=== PATIENT | female | born 1955 | race Caucasian/White ===

== ENCOUNTER → 2018-11-30 11:43 | Outpatient (CLI) | payer OTHER, SELFPAY ==
--- NOTE | 2018-11-30 | DI.CT.S_ITS ---
PROCEDURE: CT CHEST WO CON INDICATIONS: PULMONARY NODULE TECHNIQUE: Noncontrast 5 mm thick sections acquired from the pulmonary apices to the posterior costophrenic angles. 7 mm thick coronal and sagittal MIP reformats were then acquired. For radiation dose reduction, the following was used: automated exposure control, adjustment of mA and/or kV according to patient size. COMPARISON: None. Reportedly a CT from [facility] will become available for review. An addendum can be generated at that point in time. FINDINGS: Image quality: Excellent. Lungs and pleura: No definite acute air space opacities but there is a band of faint opacification, alveolar, tracking through the medial and lateral segments of the right middle lobe and also a more subtle band of lingular segment left upper lobe alveolar radiodensity adjacent to the left heart. Within the left upper lobe a rounded radiodensity measures 6 mm in diameter (series 2 image 22) and within the anterior border of the right lower lobe a sub-solid 4 mm radiodensity can be seen (series 3 image 35).. No pleural effusions or pneumothorax. Central and peripheral airways are patent and normal in caliber. Mediastinum: Heart size is normal. No pericardial effusion. No mediastinal adenopathy by size criteria. Thoracic aorta and central pulmonary arteries are normal in size. Esophagus is normal in caliber. No hiatal hernia. Bones and chest wall: No suspicious bony lesions. No vertebral body compression fractures. No axillary or supraclavicular adenopathy by size criteria. Thyroid gland is not well-visualized by this noncontrast technique.. Abdomen: Visualized upper abdominal solid organs and bowel loops appear normal in the absence of contrast. IMPRESSION: Right middle lobe and lingular segment left upper lobe vague areas of alveolar air space disease would represent alveolar scarring or acute pneumonitis mild in overall severity. The reportedly available but not yet received outside comparison CT will be very helpful in determining chronicity opposed to abnormalities. There is a sub-solid 4 mm nodule anterior aspect of the right lower lobe, and a solid appearing 6 mm nodule within the left upper lobe. Again, each of these should be reviewed with benefit of the outside comparison CT scanning. An addendum report can then be generated with advice for followup. Dictated by: Aly Cota M.D. on 11/30/2018 at 15:43 Approved by: Aly Cota M.D. on 11/30/2018 at 15:47
== END ==
PROVIDERS: Visit Provider Internal Medicine
DX: R91.8 Other nonspecific abnormal finding of lung field (principal)
CPT/HCPCS: 71250

== ENCOUNTER 2019-02-06 12:23 | Emergency (ER) | payer OTHER, SELFPAY ==
[2019-02-06] VITALS (8 sets, daily range): BP systolic 110–157; BP diastolic 62–106; PULSE 64–108; RESP 12–18; TEMP 36.9; O2SAT 97–100; BMI 34.2
--- NOTE | 2019-02-06 12:39 | ED.CHESTPAIN ---
HPI - Chest Pain General Chief Complaint: Chest Pain Stated Complaint: Palpitations Time Seen by Provider: 02/06/19 12:30 Source: patient Mode of arrival: ambulatory Limitations: no limitations History of Present Illness HPI narrative: Patient is a 64-year-old female who presents with heart palpitations. She has been feeling them off and on for the last weeks. She has been seen by our [facility] diagnosis new atrial flutter. She was instructed to increase her aspirin to 325 mg once daily and stop taking atenolol and start taking metoprolol which she has not yet done. She says this all started when she was having upper respiratory like symptoms and cough. She actually just finished a Z-Panda. She says the cough is overall better. She does feels like her heart is slow popping worried she might have a stroke. Denies any stroke-like symptoms. overall very anxious. MD complaint: chest pain Related Data Home Medications Medication Instructions Recorded Confirmed aspirin 325 mg PO BEDTIME 02/06/19 02/06/19 metoprolol succinate 50 mg PO DAILY 02/06/19 02/06/19 Allergies Allergy/AdvReac Type Severity Reaction Status Date / Time levofloxacin Allergy Verified 02/06/19 12:31 Penicillins Allergy Verified 02/06/19 12:31 walnut Allergy Verified 02/06/19 12:31 Review of Systems Review of Systems GENERAL: Denies chills, fatigue, malaise, fever, sweats, travel HEENT: Denies sinus pain, ear pain, sore throat, difficulty swallowing, neck pain RESPIRATORY: Denies dyspnea, cough, wheezing, hemoptysis, sputum. CARDIOVASCULAR: See HPI GASTROINTESTINAL: Denies nausea, vomiting, abdominal pain, diarrhea, constipation, melena. : Denies dysuria, frequency, incontinence, hematuria, urinary retention, flank pain. MUSCULOSKELETAL: Denies weakness, joint pain, or bony pain SKIN: No rash, no erythema, no pruritus NEUROLOGIC: Denies weakness, dizziness, headache, numbness, change in speech, confusion PSYCHIATRIC: No concerning psychosocial issues. 12 point review of systems is negative except for those stated above and HPI [facility] Medical History Atrial fibrillation (Acute) Social History Smoking Status: Never smoker Social History Smoking Status: Never smoker Exam Initial Vital Signs Initial Vital Signs: Vital Signs Temperature 98.5 F 02/06/19 12:31 Pulse Rate 108 H 02/06/19 12:31 Respiratory Rate 16 02/06/19 12:31 Blood Pressure 157/106 H 02/06/19 12:31 Pulse Oximetry 99 02/06/19 12:31 GENERAL: Very anxious female no acute distress and in no acute distress. HEENT: Head atraumatic,EOMI, pupils reactive, face symmetric, moist mucous membranes CARDIOVASCULAR: Irregularly irregular RESPIRATORY: Breath sounds equal bilaterally, no wheezes rales or rhonchi. ABDOMEN: Soft, nontender. Normoactive bowel sounds all 4 quadrants. No guarding or rebound. EXTREMITIES: Normal range of motion, no clubbing or edema. Neurovascularly intact NEUROLOGICAL: Alert and oriented x4.Normal gait and speech. Cranial nerves II through XII grossly intact. SKIN: Warm, dry, no laceration, no petechiae, no rashes or lesions. Course Orders Ordered: ED Orders 02/06/19 12:40 Complete Blood Count AUTO DIFF Stat Comprehensive Metabolic Panel Stat Lipase Stat Magnesium Stat Partial Thromboplastin Time Stat Prothrombin Time INR Stat Thyroid Stimulating Hormone Stat Troponin & CK Cardiac Panel Stat 02/06/19 12:46 XR chest 1V Stat EKG-12 Lead Stat 02/06/19 12:50 Prothrombin Time INR Stat 02/06/19 12:51 Complete Blood Count AUTO DIFF Stat 02/06/19 13:55 Urine Culture Stat Urine Microscopic Stat Discontinued Medications Sodium Chloride (Normal Saline 0.9%) 1,000 mls @ 1,000 mls/hr IV CONT LALIT Last Infusion: 02/06/19 14:11 Dose: 0 mls/hr Admin: 02/06/19 12:57 Dose: 1,000 mls/hr Metoprolol Tartrate (Lopressor) 5 mg IV NOW ONE Stop: 02/06/19 12:51 Last Admin: 02/06/19 12:56 Dose: 5 mg Metoprolol Tartrate (Lopressor) 50 mg PO NOW ONE Stop: 02/06/19 14:21 Last Admin: 02/06/19 14:37 Dose: 50 mg Vital Signs - 8 hr 02/06/19 12:31 02/06/19 12:54 02/06/19 12:59 Temperature 98.5 F Pulse Rate 108 H 97 H 100 H Respiratory Rate 16 16 18 Blood Pressure 157/106 H Blood Pressure [Left Arm] 155/97 H 143/95 H Pulse Oximetry 99 98 98 02/06/19 13:00 02/06/19 13:10 02/06/19 13:30 Temperature Pulse Rate 64 85 91 H Respiratory Rate 14 16 14 Blood Pressure Blood Pressure [Left Arm] 132/62 138/64 138/74 Pulse Oximetry 100 100 02/06/19 14:01 02/06/19 14:30 Temperature Pulse Rate 93 H 87 Respiratory Rate 12 14 Blood Pressure Blood Pressure [Left Arm] 110/68 116/77 Pulse Oximetry 97 99 MDM - Chest Pain Lab Data Attestation: I reviewed the patient's lab results. Result diagrams: 02/06/19 12:40 02/06/19 12:40 Lab Results 02/06/19 02/06/19 02/06/19 Range/Units 12:40 12:40 12:40 WBC 8.3 (4.5-11.0) X10^3/uL RBC 5.18 (4.0-5.2) X10^6/uL Hgb 15.6 (12.0-16.0) g/dL Hct 46.3 H (36-46) % MCV 89.5 (80-100) fL MCH 30.1 (26-34) PG MCHC 33.6 (30-36) % RDW 13.4 (11.6-14.8) % Plt Count 285 (150-400) X10^3/uL Neut % (Auto) 50.0 (50-75) % Lymph % (Auto) 41.7 H (25-40) % Hendricks % (Auto) 6.6 (3-14) % Eos % (Auto) 0.8 L (2-4) % Baso % (Auto) 0.9 (0-2) % Neut # (Auto) 4200 (1433-7021) /uL Lymph # (Auto) 3500 (1898-3898) /uL Hendricks # (Auto) 500 (0-900) /uL Eos # (Auto) 100 (0-450) /uL Baso # (Auto) 100 (0-100) /uL PT 11.5 (10.1-12.7) SECONDS INR 1.0 (0.9-1.3) APTT 33 (26.4-36.2) SECONDS Sodium 141 (137-145) mmol/L Potassium 4.1 (3.4-5.1) mmol/L Chloride 105 (98-107) mmol/L Carbon Dioxide 25 (22-32) mmol/L BUN 14 (7-17) mg/dL Creatinine 0.90 (0.52-1.04) mg/dL Estimated GFR > 60.0 (>60) mL/min BUN/Creatinine Ratio 15.6 (6-22) Glucose 100 (80-110) mg/dL Calcium 9.4 (8.4-10.2) mg/dL Magnesium (1.6-2.3) mg/dL Total Bilirubin 1.0 (0.2-1.3) mg/dL AST 22 (14-36) IU/L ALT 18 (9-52) IU/L Alkaline Phosphatase 79 (38-126) U/L Total Creatine Kinase 45 (30-135) U/L CK-MB (CK-2) TNP CK-MB (CK-2) Rel Index TNP Troponin I < 0.012 (0.01-0.034) ng/mL Total Protein 8.2 (6.3-8.2) g/dL Albumin 4.4 (3.5-5.0) g/dL Globulin 3.8 (1.7-4.1) g/dL Albumin/Globulin Ratio 1.2 (1.0-2.8) Lipase 56 (23-300) U/L TSH (0.47-4.68) uIU/mL Urine RBC (0-5/HPF) Urine WBC (0-5/HPF) Urine Bacteria (None) Ur Culture Indicated? 02/06/19 02/06/19 02/06/19 Range/Units 12:40 12:40 13:55 WBC (4.5-11.0) X10^3/uL RBC (4.0-5.2) X10^6/uL Hgb (12.0-16.0) g/dL Hct (36-46) % MCV (80-100) fL MCH (26-34) PG MCHC (30-36) % RDW (11.6-14.8) % Plt Count (150-400) X10^3/uL Neut % (Auto) (50-75) % Lymph % (Auto) (25-40) % Hendricks % (Auto) (3-14) % Eos % (Auto) (2-4) % Baso % (Auto) (0-2) % Neut # (Auto) (2805-0926) /uL Lymph # (Auto) (2769-2642) /uL Hendricks # (Auto) (0-900) /uL Eos # (Auto) (0-450) /uL Baso # (Auto) (0-100) /uL PT (10.1-12.7) SECONDS INR (0.9-1.3) APTT (26.4-36.2) SECONDS Sodium (137-145) mmol/L Potassium (3.4-5.1) mmol/L Chloride (98-107) mmol/L Carbon Dioxide (22-32) mmol/L BUN (7-17) mg/dL Creatinine (0.52-1.04) mg/dL Estimated GFR (>60) mL/min BUN/Creatinine Ratio (6-22) Glucose (80-110) mg/dL Calcium (8.4-10.2) mg/dL Magnesium 2.2 (1.6-2.3) mg/dL Total Bilirubin (0.2-1.3) mg/dL AST (14-36) IU/L ALT (9-52) IU/L Alkaline Phosphatase (38-126) U/L Total Creatine Kinase Cancelled (30-135) U/L CK-MB (CK-2) Cancelled CK-MB (CK-2) Rel Index Cancelled Troponin I Cancelled (0.01-0.034) ng/mL Total Protein (6.3-8.2) g/dL Albumin (3.5-5.0) g/dL Globulin (1.7-4.1) g/dL Albumin/Globulin Ratio (1.0-2.8) Lipase (23-300) U/L TSH 3.19 (0.47-4.68) uIU/mL Urine RBC 1-5/hpf (0-5/HPF) Urine WBC 0-1/hpf (0-5/HPF) Urine Bacteria Few (2-10) H (None) Ur Culture Indicated? Specimen cultured Urine Dip Bedside Urine Glucose Negative Bedside Urine Bilirubin - Negative Bedside Urine Ketone - Negative Urine Specific [place] 1.015 Bedside Urine Occult Blood - Negative Bedside Urine pH 6.5 Bedside Urine Protein - Negative Bedside Urine Urobilinogen - Negative Bedside Urine Nitrite - Negative Bedside Urine Leukocytes +/- 15 Esterase Imaging Data Chest x-ray: Radiologist's impression: PROCEDURE: XR CHEST 1V INDICATIONS: chest pain TECHNIQUE: One view of the chest was acquired. COMPARISON: None. FINDINGS: Surgical changes and devices: None. Lungs and pleura: Lungs are clear considering reduced inspiratory volume. No pleural effusions or pneumothorax. Mediastinum: Mediastinal contours appear normal. Heart size is normal. Bones and chest wall: No suspicious bony lesions. Overlying soft tissues appear unremarkable. IMPRESSION: Normal for age and reduced inspiratory volume, source of current chest pain symptoms is not seen. Dictated by: Aly Cota M.D. on 02/06/2019 at 13:21 ECG Data Attestation: I personally reviewed and interpreted this ECG as follows: Prior ECG tracings: not available for review Interpretation: Atrial fibrillation rate [address] changes MDM Narrative Medical decision making narrative: At this time the patient has been having AFib ongoing for at least 2 weeks not a candidate for cardioversion. I recommend that she start taking oral metoprolol as previously recommended and have an outpatient echocardiogram. Continue aspirin. Heart rate is better controlled with metoprolol she is given dose IV and oral dose now. She has metoprolol on she started tomorrow HOLLY?DS?-VASc Score for Atrial Fibrillation Stroke Risk from [email or web address] on 02/06/2019 All calculations should be rechecked by clinician prior to use RESULT SUMMARY: 2 points Stroke risk was 2.2% per year in >90,000 patients (the [place] Atrial Fibrillation Cohort Study) and 2.9% risk of stroke/TIA/systemic embolism. One recommendation suggests a 0 score is ?low? risk and may not require anticoagulation; a 1 score is ?low-moderate? risk and should consider antiplatelet or anticoagulation, and score 2 or greater is ?moderate-high? risk and should otherwise be an anticoagulation candidate. INPUTS: Age ?> 0 = <65 Sex ?> 1 = Female <abbr title='Congestive heart failure'>CHF</abbr> history ?> 0 = No Hypertension history ?> 1 = Yes Stroke / TIA / Thromboembolism history ?> 0 = No Vascular disease history ?> 0 = No Diabetes history ?> 0 = No Discharge Plan Departure Patient Disposition: Home Clinical Impression: Atrial fibrillation Qualifiers: Atrial fibrillation type: unspecified Qualified Code(s): I48.91 - Unspecified atrial fibrillation Discharge Date/Time: 02/06/19 14:47 Interventions: ED Discharge Assessment Last Done: 02/06/19 14:46 Instructions: DI for Atrial Fibrillation Activity Restrictions/Additional Instructions: *You have been diagnosed with atrial fibrillation *What to do: Atrial fibrillation does put you at risk for stroke it is recommended that he continue full-dose aspirin and daily *Continue to take medications as directed Stopped taking atenolol start taking metoprolol 50 mg daily as previously recommended it will help slow her heart rate *Follow up with your primary care provider in 2-3 days *Return to ER if you should have increasing shortness of breath, heart palpitations, dizziness or any new, worsening or concerning symptoms Prescriptions: No Action metoprolol succinate 50 mg tablet extended release 24 hr 50 mg PO DAILY RF: 0 aspirin 325 mg Tablet 325 mg PO BEDTIME RF: 0 Referrals: Asia Lott MD [Primary Care Provider] -
--- NOTE | 2019-02-06 12:46 | DI.RAD.S_ITS ---
PROCEDURE: XR CHEST 1V INDICATIONS: chest pain TECHNIQUE: One view of the chest was acquired. COMPARISON: None. FINDINGS: Surgical changes and devices: None. Lungs and pleura: Lungs are clear considering reduced inspiratory volume. No pleural effusions or pneumothorax. Mediastinum: Mediastinal contours appear normal. Heart size is normal. Bones and chest wall: No suspicious bony lesions. Overlying soft tissues appear unremarkable. IMPRESSION: Normal for age and reduced inspiratory volume, source of current chest pain symptoms is not seen. Dictated by: Aly Cota M.D. on 02/06/2019 at 13:21 Approved by: Aly Cota M.D. on 02/06/2019 at 13:21
[2019-02-06 12:56] LABS: Add Manual Diff / Slide Review NO; Basophils Absolute Auto 100 /uL (0-100); Basophils Percent Auto 0.9 % (0-2); Eosinophils Absolute Auto 100 /uL (0-450); Eosinophils Percent Auto 0.8 % (2-4); Hematocrit 46.3 % (36-46); Hemoglobin 15.6 g/dL (12.0-16.0); Lymphocytes Absolute Auto 3500 /uL (1100-4500); Lymphocytes Percent Auto 41.7 % (25-40); Mean Corpuscular HGB Conc 33.6 % (30-36); Mean Corpuscular Hemoglobin 30.1 PG (26-34); Mean Corpuscular Volume 89.5 fL (80-100); Monocytes Absolute Auto 500 /uL (0-900); Monocytes Percent Auto 6.6 % (3-14); Neutrophils Absolute Auto 4200 /uL (1500-7000); Platelet Count 285 X10^3/uL (150-400); Red Blood Cell Count 5.18 X10^6/uL (4.0-5.2); Red Cell Distribution Width 13.4 % (11.6-14.8); White Blood Cell Count 8.3 X10^3/uL (4.5-11.0)
[2019-02-06] MEDS: METOPROLOL TARTRATE 5 MG/5 ML INJ IV (12:56)
[2019-02-06] MEDS: SODIUM CHLORIDE 0.9% 1,000 ML 1000 ML IV (12:57)
--- NOTE | 2019-02-06 12:57 | ED_ITS ---
HPI - Chest Pain General Chief Complaint: Chest Pain Stated Complaint: Palpitations Time Seen by Provider: 02/06/19 12:30 Source: patient Mode of arrival: ambulatory Limitations: no limitations History of Present Illness HPI narrative: Patient is a 64-year-old female who presents with heart palpitations. She has been feeling them off and on for the last weeks. She has been seen by our [facility] diagnosis new atrial flutter. She was instructed to increase her aspirin to 325 mg once daily and stop taking atenolol and start taking metoprolol which she has not yet done. She says this all started when she was having upper respiratory like symptoms and cough. She actually just finished a Z-Panda. She says the cough is overall better. She does feels like her heart is slow popping worried she might have a stroke. Denies any stroke- like symptoms. overall very anxious. MD complaint: chest pain Related Data Home Medications Medication Instructions Recorded Confirmed aspirin 325 mg PO BEDTIME 02/06/19 02/06/19 metoprolol succinate 50 mg PO DAILY 02/06/19 02/06/19 Allergies Allergy/AdvReac Type Severity Reaction Status Date / Time levofloxacin Allergy Verified 02/06/19 12:31 Penicillins Allergy Verified 02/06/19 12:31 walnut Allergy Verified 02/06/19 12:31 Review of Systems Review of Systems GENERAL: Denies chills, fatigue, malaise, fever, sweats, travel HEENT: Denies sinus pain, ear pain, sore throat, difficulty swallowing, neck pain RESPIRATORY: Denies dyspnea, cough, wheezing, hemoptysis, sputum. CARDIOVASCULAR: See HPI GASTROINTESTINAL: Denies nausea, vomiting, abdominal pain, diarrhea, co nstipation, melena. : Denies dysuria, frequency, incontinence, hematuria, urinary retention, flank pain. MUSCULOSKELETAL: Denies weakness, joint pain, or bony pain SKIN: No rash, no erythema, no pruritus NEUROLOGIC: Denies weakness, dizziness, headache, numbness, change in speech, confusion PSYCHIATRIC: No concerning psychosocial issues. 12 point review of systems is negative except for those stated above and HPI [facility] Medical History Atrial fibrillation (Acute) Social History Smoking Status: Never smoker Social History (Reviewed 02/06/19 @ 12:59 by ISHMAEL Bates Smoking Status: Never smoker Exam Initial Vital Signs Initial Vital Signs: Vital Signs Temperature 98.5 F 02/06/19 12:31 Pulse Rate 108 H 02/06/19 12:31 Respiratory Rate 16 02/06/19 12:31 Blood Pressure 157/106 H 02/06/19 12:31 Pulse Oximetry 99 02/06/19 12:31 GENERAL: Very anxious female no acute distress and in no acute distress. HEENT: Head atraumatic,EOMI, pupils reactive, face symmetric, moist mucous membr anes CARDIOVASCULAR: Irregularly irregular RESPIRATORY: Breath sounds equal bilaterally, no wheezes rales or rhonchi. ABDOMEN: Soft, nontender. Normoactive bowel sounds all 4 quadrants. No guardi ng or rebound. EXTREMITIES: Normal range of motion, no clubbing or edema. Neurovascularly intact NEUROLOGICAL: Alert and oriented x4.Normal gait and speech. Cranial nerves II through XII grossly intact. SKIN: Warm, dry, no laceration, no petechiae, no rashes or lesions. Course Orders Ordered: ED Orders 02/06/19 12:40 Complete Blood Count AUTO DIFF Stat Comprehensive Metabolic Panel Stat Lipase Stat Magnesium Stat Partial Thromboplastin Time Stat Prothrombin Time INR Stat Thyroid Stimulating Hormone Stat Troponin & CK Cardiac Panel Stat 02/06/19 12:46 XR chest 1V Stat EKG-12 Lead Stat 02/06/19 12:50 Prothrombin Time INR Stat 02/06/19 12:51 Complete Blood Count AUTO DIFF Stat 02/06/19 13:55 Urine Culture Stat Urine Microscopic Stat Discontinued Medications Sodium Chloride (Normal Saline 0.9%) 1,000 mls @ 1,000 mls/hr IV CONT LALIT Last Infusion: 02/06/19 14:11 Dose: 0 mls/hr Admin: 02/06/19 12:57 Dose: 1,000 mls/hr Metoprolol Tartrate (Lopressor) 5 mg IV NOW ONE Stop: 02/06/19 12:51 Last Admin: 02/06/19 12:56 Dose: 5 mg Metoprolol Tartrate (Lopressor) 50 mg PO NOW ONE Stop: 02/06/19 14:21 Last Admin: 02/06/19 14:37 Dose: 50 mg Vital Signs - 8 hr 02/06/19 12:31 02/06/19 12:54 02/06/19 12:59 Temperature 98.5 F Pulse Rate 108 H 97 H 100 H Respiratory Rate 16 16 18 Blood Pressure 157/106 H Blood Pressure [Left Arm] 155/97 H 143/95 H Pulse Oximetry 99 98 98 02/06/19 13:00 02/06/19 13:10 02/06/19 13:30 Temperature Pulse Rate 64 85 91 H Respiratory Rate 14 16 14 Blood Pressure Blood Pressure [Left Arm] 132/62 138/64 138/74 Pulse Oximetry 100 100 02/06/19 14:01 02/06/19 14:30 Temperature Pulse Rate 93 H 87 Respiratory Rate 12 14 Blood Pressure Blood Pressure [Left Arm] 110/68 116/77 Pulse Oximetry 97 99 MDM - Chest Pain Lab Data Attestation: I reviewed the patient's lab results. Result diagrams: 02/06/19 12:40 02/06/19 12:40 Lab Results 02/06/19 02/06/19 02/06/19 Range/Units 12:40 12:40 12:40 WBC 8.3 (4.5-11.0) X10^3/uL RBC 5.18 (4.0-5.2) X10^6/uL Hgb 15.6 (12.0-16.0) g/dL Hct 46.3 H (36-46) % MCV 89.5 (80-100) fL MCH 30.1 (26-34) PG MCHC 33.6 (30-36) % RDW 13.4 (11.6-14.8) % Plt Count 285 (150-400) X10^3/uL Neut % (Auto) 50.0 (50-75) % Lymph % (Auto) 41.7 H (25-40) % [place] % (Auto) 6.6 (3-14) % Eos % (Auto) 0.8 L (2-4) % Baso % (Auto) 0.9 (0-2) % Neut # (Auto) 4200 (4693-1359) /uL Lymph # (Auto) 3500 (1583-1891) /uL [place] # (Auto) 500 (0-900) /uL Eos # (Auto) 100 (0-450) /uL Baso # (Auto) 100 (0-100) /uL PT 11.5 (10.1-12.7) SECONDS INR 1.0 (0.9-1.3) APTT 33 (26.4-36.2) SECONDS Sodium 141 (137-145) mmol/L Potassium 4.1 (3.4-5.1) mmol/L Chloride 105 (98-107) mmol/L Carbon Dioxide 25 (22-32) mmol/L BUN 14 (7-17) mg/dL Creatinine 0.90 (0.52-1.04) mg/dL Estimated GFR > 60.0 (>60) mL/min BUN/Creatinine Ratio 15.6 (6-22) Glucose 100 (80-110) mg/dL Calcium 9.4 (8.4-10.2) mg/dL Magnesium (1.6-2.3) mg/dL Total Bilirubin 1.0 (0.2-1.3) mg/dL AST 22 (14-36) IU/L ALT 18 (9-52) IU/L Alkaline Phosphatase 79 (38-126) U/L Total Creatine Kinase 45 (30-135) U/L CK-MB (CK-2) TNP CK-MB (CK-2) Rel Index TNP Troponin I < 0.012 (0.01-0.034) ng/mL Total Protein 8.2 (6.3-8.2) g/dL Albumin 4.4 (3.5-5.0) g/dL Globulin 3.8 (1.7-4.1) g/dL Albumin/Globulin Ratio 1.2 (1.0-2.8) Lipase 56 (23-300) U/L TSH (0.47-4.68) uIU/mL Urine RBC (0-5/HPF) Urine WBC (0-5/HPF) Urine Bacteria (None) Ur Culture Indicated? 02/06/19 02/06/19 02/06/19 Range/Units 12:40 12:40 13:55 WBC (4.5-11.0) X10^3/uL RBC (4.0-5.2) X10^6/uL Hgb (12.0-16.0) g/dL Hct (36-46) % MCV (80-100) fL MCH (26-34) PG MCHC (30-36) % RDW (11.6-14.8) % Plt Count (150-400) X10^3/uL Neut % (Auto) (50-75) % Lymph % (Auto) (25-40) % [place] % (Auto) (3-14) % Eos % (Auto) (2-4) % Baso % (Auto) (0-2) % Neut # (Auto) (6175-4317) /uL Lymph # (Auto) (5345-6602) /uL [place] # (Auto) (0-900) /uL Eos # (Auto) (0-450) /uL Baso # (Auto) (0-100) /uL PT (10.1-12.7) SECONDS INR (0.9-1.3) APTT (26.4-36.2) SECONDS Sodium (137-145) mmol/L Potassium (3.4-5.1) mmol/L Chloride (98-107) mmol/L Carbon Dioxide (22-32) mmol/L BUN (7-17) mg/dL Creatinine (0.52-1.04) mg/dL Estimated GFR (>60) mL/min BUN/Creatinine Ratio (6-22) Glucose (80-110) mg/dL Calcium (8.4-10.2) mg/dL Magnesium 2.2 (1.6-2.3) mg/dL Total Bilirubin (0.2-1.3) mg/dL AST (14-36) IU/L ALT (9-52) IU/L Alkaline Phosphatase (38-126) U/L Total Creatine Kinase Cancelled (30-135) U/L CK-MB (CK-2) Cancelled CK-MB (CK-2) Rel Index Cancelled Troponin I Cancelled (0.01-0.034) ng/mL Total Protein (6.3-8.2) g/dL Albumin (3.5-5.0) g/dL Globulin (1.7-4.1) g/dL Albumin/Globulin Ratio (1.0-2.8) Lipase (23-300) U/L TSH 3.19 (0.47-4.68) uIU/mL Urine RBC 1-5/hpf (0-5/HPF) Urine WBC 0-1/hpf (0-5/HPF) Urine Bacteria Few (2-10) H (None) Ur Culture Indicated? Specimen cultured Urine Dip Bedside Urine Glucose Negative Bedside Urine Bilirubin - Negative Bedside Urine Ketone - Negative Urine Specific [place] 1.015 Bedside Urine Occult Blood - Negative Bedside Urine pH 6.5 Bedside Urine Protein - Negative Bedside Urine Urobilinogen - Negative Bedside Urine Nitrite - Negative Bedside Urine Leukocytes +/- 15 Esterase Imaging Data Chest x-ray: Radiologist's impression: PROCEDURE: XR CHEST 1V INDICATIONS: chest pain TECHNIQUE: One view of the chest was acquired. COMPARISON: None. FINDINGS: Surgical changes and devices: None. Lungs and pleura: Lungs are clear considering reduced inspiratory volume. No pleural effusions or pneumothorax. Mediastinum: Mediastinal contours appear normal. Heart size is normal. Bones and chest wall: No suspicious bony lesions. Overlying soft tissues appear unremarkable. IMPRESSION: Normal for age and reduced inspiratory volume, source of current chest pain symptoms is not seen. Dictated by: Aly Cota M.D. on 02/06/2019 at 13:21 ECG Data Attestation: I personally reviewed and interpreted this ECG as follows: Prior ECG tracings: not available for review Interpretation: Atrial fibrillation rate [address] changes MDM Narrative Medical decision making narrative: At this time the patient has been having AFib ongoing for at least 2 weeks not a candidate for cardioversion. I recommend that she start taking oral metoprolol as previously recommended and have an outpatient echocardiogram. Continue aspirin. Heart rate is better controlled with metoprolol she is given dose IV and oral dose now. She has metoprolol on she started tomorrow HOLLY?DS?-VASc Score for Atrial Fibrillation Stroke Risk from [employer] on 02/06/2019 All calculations should be rechecked by clinician prior to use RESULT SUMMARY: 2 points Stroke risk was 2.2% per year in >90,000 patients (the [place] Atrial Fibrillation Cohort Study) and 2.9% risk of stroke/TIA/systemic embolism. One recommendation suggests a 0 score is ?low? risk and may not require anticoag ulation; a 1 score is ?low-moderate? risk and should consider antiplatelet or anticoagulation, and score 2 or greater is ?moderate-high? risk and should otherwise be an anticoagulation candidate. INPUTS: Age ?> 0 = <65 Sex ?> 1 = Female <abbr title='Congestive heart failure'>CHF</abbr> history ?> 0 = No Hypertension history ?> 1 = Yes Stroke / TIA / Thromboembolism history ?> 0 = No Vascular disease history ?> 0 = No Diabetes history ?> 0 = No Discharge Plan Departure Patient Disposition: Home Clinical Impression: Atrial fibrillation Qualifiers: Atrial fibrillation type: unspecified Qualified Code(s): I48.91 - Unspecified atrial fibrillation Discharge Date/Time: 02/06/19 14:47 Interventions: ED Discharge Assessment Last Done: 02/06/19 14:46 Instructions: DI for Atrial Fibrillation Activity Restrictions/Additional Instructions: *You have been diagnosed with atrial fibrillation *What to do: Atrial fibrillation does put you at risk for stroke it is recommended that he continue full-dose aspirin and daily *Continue to take medications as directed Stopped taking atenolol start taking metoprolol 50 mg daily as previously recommended it will help slow her heart rate *Follow up with your primary care provider in 2-3 days *Return to ER if you should have increasing shortness of breath, heart palpitations, dizziness or any new, worsening or concerning symptoms Prescriptions: No Action metoprolol succinate 50 mg tablet extended release 24 hr 50 mg PO DAILY RF: 0 aspirin 325 mg Tablet 325 mg PO BEDTIME RF: 0 Referrals: Asia Lott MD [Primary Care Provider] -
[2019-02-06 13:05] LABS: Prothrombin Time 11.5 SECONDS (10.1-12.7)
[2019-02-06 13:08] LABS: PTT Partial Thromboplastin Tim 33 SECONDS (26.4-36.2)
[2019-02-06 13:14] LABS: Alanine Aminotransferase 18 IU/L (9-52); Albumin 4.4 g/dL (3.5-5.0); Albumin Globulin Ratio 1.2 (1.0-2.8); Alkaline Phosphatase 79 U/L (38-126); Aspartate Aminotransferase 22 IU/L (14-36); BUN Creatinine Ratio 15.6 (6-22); Blood Urea Nitrogen 14 mg/dL (7-17); Calcium 9.4 mg/dL (8.4-10.2); Carbon Dioxide 25 mmol/L (22-32); Chloride 105 mmol/L (98-107); Creatine Kinase 45 U/L (30-135); Estimated Glomerular Filt Rate > 60.0 mL/min (>60); Globulin 3.8 g/dL (1.7-4.1); Glucose 100 mg/dL (80-110); HEMOLYSIS < 15 (0-50); Lipase 56 U/L (23-300); Potassium 4.1 mmol/L (3.4-5.1); Sodium 141 mmol/L (137-145); Total Protein 8.2 g/dL (6.3-8.2)
[2019-02-06 13:15] LABS: Magnesium 2.2 mg/dL (1.6-2.3)
[2019-02-06 13:26] LABS: Troponin I < 0.012 ng/mL (0.01-0.034)
[2019-02-06 14:24] LABS: Thyroid Stimulating Hormone 3.19 uIU/mL (0.47-4.68)
[2019-02-06] MEDS: METOPROLOL IR 25 MG TABLET 50 MG PO (14:37)
[2019-02-06 14:49] LABS: RBC Urine 1-5/HPF (0-5/HPF); WBC Urine 0-1/HPF (0-5/HPF)
[2019-02-06 14:50] LABS: Bacteria Urine Few (2-10); Culture Indicated Urine Specimen Cultured
== END 2019-02-06 14:47 | disposition home or self-care (01) ==
PROVIDERS: Emergency Provider Emergency Medicine; PCP Internal Medicine
DX: I48.91 Unspecified atrial fibrillation (principal); R07.89 Other chest pain
CPT/HCPCS: 36591; 71045; 80053; 81003; 81015; 82550; 83690; 83735; 84443; 84484; 85025; 85610; 85730; 87086; 93005; 96361; 96374; 99285

== ENCOUNTER 2019-02-15 14:00 | Emergency (ER) | payer OTHER, SELFPAY ==
[2019-02-15 14:04] VITALS: BP 139/87; PULSE 98; RESP 15; TEMP 37.1; O2SAT 97; BMI 34.1
--- NOTE | 2019-02-15 14:23 | PC.NURSE ---
Pt has an area on her upper right arm that is more hard compared to left arm and is red and somewhat warm to touch.
--- NOTE | 2019-02-15 14:39 | ED_ITS ---
HPI - Skin/Abscess/Foreign Bdy General Chief complaint: Skin/Abscess/Foreign Body Stated complaint: lump on her right upper arm Time Seen by Provider: 02/15/19 14:04 Source: patient Mode of arrival: ambulatory Limitations: no limitations History of Present Illness HPI narrative: 64F non smoker with history of Afib on aspirin presents with a painful red warm ?bump on her right biceps which has been present over the past few days. She was recently seen and treated for evaluation of AFib and had IV in her right AC. The red tender spot extends just proximal to that. She denies any injury. She has had no fever or chills. MD complaint: discoloration Onset (ago): day(s) Tetanus up to date: yes Location: RUE Quality: aching Related Data Home Medications Medication Instructions Recorded Confirmed aspirin 325 mg PO BEDTIME 02/06/19 02/15/19 metoprolol succinate 50 mg PO DAILY 02/06/19 02/15/19 diltiazem HCl 60 mg PO BID 02/15/19 02/15/19 escitalopram oxalate 10 mg PO DAILY 02/15/19 02/15/19 Previous Rx's Medication Instructions Recorded apixaban See Rx Instructions .ROUTE 02/15/19 .COMPLEX 30 Days tab Allergies Allergy/AdvReac Type Severity Reaction Status Date / Time levofloxacin Allergy Verified 02/06/19 12:31 Penicillins Allergy Verified 02/06/19 12:31 walnut Allergy Verified 02/06/19 12:31 Review of Systems Constitutional Denies chills, Denies fever(s), Denies lethargy and Denies weakness Eyes Denies change in vision, Denies eye discharge, Denies irritation and Denies loss of vision ENT Ears, Nose, Mouth, and Throat: Denies change in voice, Denies neck pain and Denies sore throat Cardiovascular Denies chest pain, Denies irregular heart rhythm, Denies lightheadedness, Denies palpitations, Denies dyspnea, Denies dyspnea on exertion and Denies orthopnea Respiratory Denies cough, Denies dyspnea, Denies dyspnea on exertion and Denies wheezing Gastrointestinal Gastrointestinal: Denies abdominal pain, Denies change in bowel habits, Denies diarrhea, Denies nausea and Denies vomiting Genitourinary Denies hematuria, Denies flank pain, Denies urinary incontinence and Denies urinary urgency Musculoskeletal Denies neck pain Integumentary/Breasts Denies pruritus, Reports erythema, Denies rash, Reports skin pain, Reports skin swelling and Denies wounds Neurologic Denies confusion, Denies loss of vision and Denies weakness Psychiatric Denies anxiety, Denies confusion, Denies depression, Denies homicidal ideation and Denies suicidal ideation Endocrine Denies palpitations Hematologic/Lymphatic Denies easy bruising Allergic/Immunologic Denies wheezing [facility] Medical History Atrial fibrillation (Acute) Social History Smoking Status: Never smoker Social History Smoking Status: Never smoker Exam Narrative Exam Narrative: GENERAL: 64-year-old female, pleasant, resting comfortably, anxious HEAD: Atraumatic. Normocephalic. No temporal or scalp tenderness. EYES: Pupils equal round and reactive. Extraocular motions intact. No scleral icterus. No injection or drainage. ENT: Nose without bleeding, purulent drainage or septal hematoma. Throat without erythema, tonsillar hypertrophy or exudate. Uvula midline. Airway patent. NECK: Trachea midline. No JVD or lymphadenopathy. Supple, nontender, no meningeal signs. CARDIOVASCULAR: Regular rate and rhythm without murmurs, gallops, or rubs. RESPIRATORY: Clear to auscultation. Breath sounds equal bilaterally. No wheezes, rales, or rhonchi. GASTROINTESTINAL: Abdomen soft, non-tender, nondistended. No hepato- splenomegaly, or palpable masses. No guarding. EXTREMITIES: No clubbing, cyanosis, or edema. No joint tenderness, effusion, or edema noted. BACK: Nontender without deformity or crepitance. No flank tenderness. NEURO: AOx3. SKIN: Redness, warmth and pain to palpation of right upper extremity overlying biceps Initial Vital Signs Initial Vital Signs: Vital Signs Temperature 98.8 F 02/15/19 14:04 Pulse Rate 98 H 02/15/19 14:04 Respiratory Rate 15 02/15/19 14:04 Blood Pressure 139/87 02/15/19 14:04 Pulse Oximetry 97 02/15/19 14:04 Course Orders Ordered: ED Orders 02/15/19 14:37 periph venous up extrem rt Stat Discontinued Medications Enoxaparin Sodium (Lovenox) 95 mg 1 mg/kg (95 mg) SUBCUT NOW ONE Stop: 02/15/19 16:16 Last Admin: 02/15/19 16:44 Dose: 95 mg Vital Signs - 8 hr 02/15/19 14:04 02/15/19 16:55 Temperature 98.8 F Pulse Rate 98 H 90 Respiratory Rate 15 17 Blood Pressure 139/87 Blood Pressure [Left Arm] 161/103 H Pulse Oximetry 97 96 MDM - Skin/Abscess/Foreign Bdy Imaging Data Venous US: Radiologist's impression: Chart Viewer Diagnostics DATE TYPE STATUS AUTHOR Hx 02/15/19 14:37 Khadar Ferrer 02/06/19 12:46 Aly Cota 11/30/18 00:00 Aly Cota Donna L 64, F0 1955 [facility], ED.LOC - Main ED: R04 167.64cm 96kg BMI: 34.2kg/m? Skin/Abscess/Foreign Body Search Chart ONSET Today 16:55 Abena Sandhu 64 F 1955 [place] [address] Ultrasound Report Signed Patient: Jason Sandhuna LMR#: [id number] : 5Acct:[id number] Age/Sex: 64 / FDate of Service: 02/15/19 Loc: ED Accession Number: [id number] Procedure: US periph venous up extrem rt Ordering Provider: Tomas Zuniga D.O. PROCEDURE: US PERIPH VENOUS UP EXTREM RT INDICATIONS: RUE REDNESS, PAIN, SWELLING, RECENT IV TECHNIQUE: Real-time imaging, as well as color and pulse Doppler interrogation, was performed of the right upper extremity deep veins from the inferior neck to the antecubital fossa. COMPARISON: None. FINDINGS: The internal jugular vein, visualized portions of the subclavian vein, axillary, and brachial veins are free of intraluminal thrombus. Where physically possible, the patent veins are normally compressible. Color and pulse Doppler demonstrate normal intraluminal flow, with expected phasicity and pulsatility. Additional scanning of the cephalic and basilic veins of the superficial system demonstrate an occlusive thrombus within the right cephalic vein. The basilic vein was patent. IMPRESSION: 1. Occlusive thrombus within the right cephalic vein of the superficial venous system. 2. No evidence for occlusive thrombus within the deep venous system of the right upper extremity. Dictated by: Khadar Ferrer M.D. on 02/15/2019 at 16:26 Approved by: Khadar Ferrer M.D. on 02/15/2019 at 16:32 MDM Narrative Medical decision making narrative: Given extensive distribution of this clot with demonstration of occlusive thrombus in the cephalic as well as noted overlying erythema, warmth and tenderness called Oncology to discuss whether not to anticoagulate. They stated given the size and distribution as well as symptomatology of the clot they would recommend treating with anticoagulation. I have discussed this case with the patient's PCP who will see her in the clinic Discharge Plan Departure Patient Disposition: Home Clinical Impression: DVT (deep venous thrombosis) Qualifiers: DVT location: upper extremity Affected thrombotic vein of extremity: other u pper extremity vein Chronicity: acute Laterality: right Qualified Code(s): I82.621 - Acute embolism and thrombosis of deep veins of right upper extremity Discharge Date/Time: 02/15/19 17:11 Activity Restrictions/Additional Instructions: *You have been diagnosed with [ clot within cephalic vein ] *What to do: *Take medications as directed *Follow up with your primary care provider in 2-3 days, call for an appointment. Let them know you were seen in the Emergency Department and that we ask that you be seen in follow up *Return to ER if you should have any new, worsening or concerning symptoms, such as [worsening pain, redness, swelling, or chest pain or shortness of breath ] Prescriptions: New apixaban 5 mg tablet See Rx Instructions .ROUTE .COMPLEX 30 Days RF: 0 No Action metoprolol succinate 50 mg tablet extended release 24 hr 50 mg PO DAILY RF: 0 aspirin 325 mg Tablet 325 mg PO BEDTIME RF: 0 diltiazem HCl 60 mg Capsule,Extended Release 12 Hr 60 mg PO BID RF: 0 escitalopram oxalate 10 mg Tablet 10 mg PO DAILY RF: 0 Referrals: Asia Lott MD [Primary Care Provider] -
[2019-02-15] MEDS: ENOXAPARIN 100 MG/ML SYRINGE 95 MG SUBCUT (16:44)
[2019-02-15 16:55] VITALS: BP 161/103; PULSE 90; RESP 17; O2SAT 96
== END 2019-02-15 17:11 | disposition home or self-care (01) ==
PROVIDERS: Emergency Provider Emergency Medicine; PCP Internal Medicine
DX: I82.621 Acute embolism and thrombosis of deep veins of right upper extremity (principal)
CPT/HCPCS: 93971; 96372; 99282; 99283; J1650

== ENCOUNTER → 2019-02-24 12:02 | Outpatient (CLI) | payer OTHER, SELFPAY ==
--- NOTE | 2019-02-24 | DI.RAD.S_ITS ---
PROCEDURE: XR CHEST 2V INDICATIONS: Cough TECHNIQUE: 2 views of the chest were acquired. COMPARISON: [facility], CR, XR CHEST 1V, 02/06/2019, 12:55. FINDINGS: Surgical changes and devices: None. Lungs and pleura: Lungs are clear. No pleural effusions or pneumothorax. Mediastinum: Mediastinal contours are normal. Heart size is normal. Bones and chest wall: No suspicious bony abnormalities. Soft tissues appear unremarkable. IMPRESSION: No acute cardiopulmonary pathology. Dictated by: Nathanael Schroeder M.D. on 02/24/2019 at 13:17 Approved by: Nathanael Schroeder M.D. on 02/24/2019 at 13:25
== END ==
PROVIDERS: PCP Internal Medicine; Visit Provider Internal Medicine
DX: R05 Cough (principal)
CPT/HCPCS: 71046

== ENCOUNTER → 2019-03-10 09:05 | Outpatient (CLI) | payer OTHER, SELFPAY ==
--- NOTE | 2019-03-10 | DI.ECHO.S_ITS ---
[place] +---------+ Hospital +---------+ : : [address] : : : : [id number] : : : : Phone: [phone] Echocardiogram Report + + :Name: BRENDAN HADDAD Study Date: 03/10/2019 Height: 66 in : :[facility] Weight: 218 lb : : Gender: Female BSA: 2.1 m2 : :: 1955 Age: 64 yrs BP: 132/78 mmHg: :Reason For Study: Atrial fibrillation : : Performed By: Ester Bates : :Referring: JOHN GRANDA : + + Interpretation Summary The left ventricle is normal in size. The ejection fraction is estimated to be 55-60%. The right ventricle is mildly dilated. Right ventricular systolic function is at the lower limits of normal. There is moderate mitral regurgitation. There is mild tricuspid regurgitation. The right ventricular systolic pressure is estimated to be at least 44 mmHg based on an estimated right atrial pressure of 15 mm Hg. Procedure: A two-dimensional transthoracic echocardiogram with color flow and Doppler was performed. The study quality was technically adequate. There is no prior echocardiogram noted for this patient. The patient was in atrial fibrillation with heart rates between 85-102 bpm during the exam. Left Ventricle: The left ventricle is normal in size. There is normal left ventricular wall thickness. There is no thrombus. The ejection fraction is estimated to be 55-60%. There are no focal wall motion abnormalities. Diastolic function could not be accurately assessed due to atrial fibrillation. Right Ventricle: The right ventricle is mildly dilated. Right ventricular systolic function is at the lower limits of normal. Atria: The left atrium is moderately dilated. The right atrium is mildly dilated. The interatrial septum is intact with no evidence for an atrial septal defect. Mitral Valve: There is mild mitral annular calcification. There is moderate mitral regurgitation. Aortic Valve: The aortic valve is trileaflet. The aortic valve opens well. There is no aortic valve stenosis. No aortic regurgitation is present. Tricuspid Valve: The tricuspid valve leaflets are thin and pliable. There is mild tricuspid regurgitation. The right ventricular systolic pressure is estimated to be at least 44 mmHg based on an estimated right atrial pressure of 15 mm Hg. Pulmonic Valve: The pulmonic valve is not well seen, but is grossly normal. There is trace pulmonic regurgitation. Great Vessels: The aortic root is normal size. The dimensions of the ascending aorta are normal. The aortic arch is at the upper limits of normal in size. The IVC is dilated (diameter is greater than 2.1 cm) and it collapses less than 50% with a sniff. This suggests a high right atrial pressure of 15 mm Hg. Pericardium/ Pleura There is no pericardial effusion. There is no pleural effusion. MMode/2D Measurements & Calculations LVIDd: 4.7 cm Ao root diam: 2.7 cm LVIDs: 3.3 cm Aortic Jxn: 2.3 cm FS: 29.3 % asc Aorta Diam: 2.7 cm IVSd: 1.0 cm Ao Arch Diam (Prox Trans): 3.1 cm LVPWd: 0.81 cm LV parmar. diameter/BSA (cm/m^2): 2.3 LV sys. diameter/BSA (cm/m^2): 1.6 LA dimension: 4.6 cm RA long axis: 4.9 cm LA A2 area: 18.6 cm2 RA area: 13.4 cm2 LA A4 area: 24.0 cm2 RA vol: 31.4 ml LA length (vol): 5.9 cm RA : 15.1 ml/m2 LA vol: 64.6 ml IVC diam: 2.2 cm LA vol index: 31.1 ml/m2 RVDd major: 3.9 cm RVD1 (basal): 3.4 cm RVD2 (mid): 2.9 cm Doppler Measurements & Calculations Ao V2 max: 153.8 cm/sec LVOT Max Srikanth: 88.3 cm/sec Ao V2 mean: 103.0 cm/sec LV V1 max P.1 mmHg Ao max P.5 mmHg LV V1 VTI: 17.9 cm Ao mean P.1 mmHg sev ratio: 0.59 Ao V2 VTI: 30.3 cm MV P1/2t: 58.0 msec TR max srikanth: 269.8 cm/sec MR ERO: 0.06 cm2 TR max P.1 mmHg PA Accel Time: 0.11 sec MV V2 mean: 59.8 cm/sec MV P1/2t max srikanth: 98.2 cm/sec MV mean P.8 mmHg MVA(P1/2t): 3.8 cm2 MV V2 VTI: 15.6 cm MR flow rate: 25.4 cm3/sec MR PISA radius: 0.32 cm Reading Physician:PM
== END ==
PROVIDERS: PCP Internal Medicine; Visit Provider Internal Medicine
DX: I08.1 Rheumatic disorders of both mitral and tricuspid valves (principal); I48.91 Unspecified atrial fibrillation
CPT/HCPCS: 93306